=== PATIENT | male | born 1975 | race Caucasian/White ===

== ENCOUNTER 2016-07-26 11:56 | Day surgery (SDC) | payer SELFPAY ==
[2016-07-25 11:08] LABS: BASOPHILS 0.4 %; BASOPHILS ABSOLUTE 0.03 10/3/uL (0.0-0.16); EOSINOPHILS 1.9 %; EOSINOPHILS ABSOLUTE 0.13 10/3/uL (0.0-0.53); HEMATOCRIT 45.3 % (40.0-51.0); HEMOGLOBIN 15.1 g/dL (13.6-17.8); IMMATURE GRANULOCYTES 0.1 %; IMMATURE GRANULOCYTES ABSOLUTE 0.01 10/3/uL (0.0-0.11); LYMPHOCYTES 16.9 %; LYMPHOCYTES ABSOLUTE 1.16 10/3/uL (0.67-4.30); MEAN CORPUS HGB CONC 33.3 g/dL (32.0-36.0); MEAN CORPUSCULAR HEMOGLOB 29.4 pg (26.0-34.0); MEAN CORPUSCULAR VOLUME 88.1 fL (80-100); MEAN PLATELET VOLUME 9.6 fL (9.2-13.0); MONOCYTES 6.6 %; MONOCYTES ABSOLUTE 0.45 10/3/uL (0.21-1.20); NEUTROPHILS 74.1 %; NEUTROPHILS ABSOLUTE 5.07 10/3/uL (2.02-8.40); PLATELET COUNT 317 10/3/uL (150-400); RBC DISTRIBUTION WIDTH 13.5 % (12.0-16.0); RED CELL COUNT 5.14 10/6/uL (4.7-6.1); WHITE BLOOD CELLS 6.9 10/3/uL (4.5-10.5)
[2016-07-25 11:19] LABS: MANUAL DIFF NO %
--- NOTE | ~2016-07-26 | OP ---
Record Of Operation [facility] [address] [place]. [address] NAME: MARI VORA : 71 STATUS : [facility]#: [id number] AGE: 41 ADM/REG DATE : 07/26/16 MR#: [id number] REPORT SERV DATE: 07/26/16 DICTATED BY: HAMLET HUSSEIN III DATE: 07/26/16 REPORT STATUS : Draft TRANSCRIBED BY: MODL DATE: 07/26/16 DATE OF PROCEDURE: 07/26/2016 PROCEDURE: Cystoscopy and multiple bladder biopsies. PREOPERATIVE DIAGNOSIS: Previous bladder cancer stage T1 post BCG therapy. POSTOPERATIVE DIAGNOSIS: Previous bladder cancer stage T1 post BCG therapy. PROCEDURE: Following induction of adequate general anesthesia, the patient was placed in the dorsal lithotomy position and prepped and draped in a sterile fashion. The urethra was normal. The prostate was minimally obstructed. The bladder was entered. The site of the original tumor, the orifice was somewhat golf hole as it had been partially resected. The lumen was open and free of tumor. The muscle of the bladder wall looked fairly thin in this area. There were no papillary tumors. There was 1 to 2 mm reddened area on the right side of the bladder wall. The bladder was inspected with both 30 and 70 degree lenses. No other new masses were detected. Eventually the mass on the right side was sent as right bladder wall biopsy. Five or six biopsies were used to cover the former tumor bed. All biopsy sites were then cauterized with Bugbee electrode. Hemostasis was achieved. The bladder was drained. The patient tolerated the procedure well. OB/MODL Hamlet Hussein III, M.D. / [id number] CC: Hamlet Hussein III, M.D.
[~2016-07-26 11:56] MED LIST: DENIES HOME MEDS
== END 2016-07-26 15:01 | disposition home or self-care (01) ==
LOC: SDC 11:56
PROVIDERS: Urology
PROC: 0TBB8ZX Excision of Bladder, Via Natural or Artificial Opening Endoscopic, Diagnostic (ICD-10-PCS; principal; 2016-07-26 13:15)
DX: N30.80 Other cystitis without hematuria (principal); N40.0 Benign prostatic hyperplasia without lower urinary tract symptoms; Z85.51 Personal history of malignant neoplasm of bladder; Z92.21 Personal history of antineoplastic chemotherapy; M25.552 Pain in left hip; R06.83 Snoring; F12.90 Cannabis use, unspecified, uncomplicated; E66.01 Morbid (severe) obesity due to excess calories; Z68.41 Body mass index [BMI] 40.0-44.9, adult; Z87.81 Personal history of (healed) traumatic fracture; Z98.890 Other specified postprocedural states
CPT/HCPCS: 85025; 88305; 88312; J0330; J2250; J2405; J3010; Q9967